=== PATIENT | female | born 1930 | race Caucasian/White ===

== ENCOUNTER 2020-05-18 16:33 | Emergency (ER) | payer MEDICARE, BC ==
--- NOTE | 2020-05-18 16:59 | EDM.PDOC ---
ED HPI GENERAL MEDICAL PROBLEM - General Stated Complaint: STROKE Time Seen by Provider: 05/18/20 16:50 Source of Information: Reports: EMS, EMS Notes Reviewed, Old Records, RN, RN Notes Reviewed History Limitations: Reports: Altered Mental Status - History of Present Illness INITIAL COMMENTS - FREE TEXT/NARRATIVE: Patient presents to the ED via EMS for stroke-like symptoms. Per EMS, the patient was found unresponsive in her home following a worried-well call from her neighbor. She was aroused by sternal rub and was noted to have a right- sided droop, right-sided facial weakness, and was verbally unresponsive to EMS. Upon arrival to this facility she remains aphasic with a noted right-sided droop and right-sided weakness. NIH is 19. She is stable of 1L of O2 via NC. Currently attempting to notify next of kin. ED ROS GENERAL - Review of Systems Review Of Systems: Unable To Obtain Reason Not Obtained: Aphasia ED EXAM, NEURO - Physical Exam Exam: See Below Exam Limited By: Altered Mental Status (Aphasia) General Appearance: Alert, No Apparent Distress Eye Exam: Bilateral Eye: EOMI, Normal Inspection, PERRL (4mm) Throat/Mouth: Normal Inspection, No Airway Compromise. No: Normal Voice (Patient aphasic ) Head Exam: Atraumatic, Normocephalic Neck: Normal Inspection, Supple, Non-Tender, Full Range of Motion Respiratory/Chest: No Respiratory Distress, Lungs Clear, Normal Breath Sounds, No Accessory Muscle Use Cardiovascular: Normal Peripheral Pulses, Regular Rate, Rhythm, No Edema, No Gallop, No JVD, No Murmur, No Rub GI/Abdominal: Normal Bowel Sounds, Soft, No Distention, No Mass, Pelvis Stable. No: Guarding (Female) Exam: Deferred Rectal (Female) Exam: Deferred Neurological: Alert, Abnormal Finger to Nose, Abnormal Motor, Straight Leg Raise (L), Other (Aphasia). No: Straight Leg Raise (R) Extremities: Limited Range of Motion (To RUE and RLE) Psychiatric: Normal Affect, Normal Mood Skin Exam: Warm, Dry, Intact, Normal Color, No Rash. No: Ecchymosis, Erythema, Jaundice, Mottled, Pallor, Petechiae Course - Vital Signs Last Recorded V/S: Last Vital Signs Temp 97.8 F 05/18/20 16:58 Pulse 71 05/18/20 16:58 Resp 15 05/18/20 16:58 BP 134/72 05/18/20 16:58 Pulse Ox 95 05/18/20 16:58 - Orders/Labs/Meds Orders: Active Orders 24 hr Category Date Time Status CULTURE URINE [RM] Stat Lab 05/18/20 17:43 Results Labs: Laboratory Tests 05/18/20 05/18/20 05/18/20 Range/Units 17:00 17:00 17:00 WBC 13.1 H (5.0-10.0) 10^3/uL RBC 4.22 (4.2-5.4) 10^6/uL Hgb 13.0 (12.0-16.0) g/dL Hct 39.8 (37.0-47.0) % MCV 94.3 (80-100) fL MCH 30.8 (27.0-34.0) pg MCHC 32.7 L (33.0-35.0) g/dL Plt Count 188 (150-450) 10^3/uL Neut % (Auto) 87.9 H (42.2-75.2) % Lymph % (Auto) 7.4 L (20.5-50.1) % [place] % (Auto) 4.1 (2-8) % Eos % (Auto) 0.4 L (1.0-3.0) % Baso % (Auto) 0.2 (0.0-1.0) % PT 11.1 (9.0-12.0) SEC INR 1.2 (0.9-1.2) APTT 22.4 (22.0-34.0) SEC Sodium 143 (136-145) mmol/L Potassium 3.3 L (3.5-5.1) mmol/L Chloride 102 (98-107) mmol/L Carbon Dioxide 31 (21-32) mmol/L Anion Gap 13.3 H (7-13) mEq/L BUN 22 H (7-18) mg/dL Creatinine 1.04 H (0.55-1.02) mg/dL Est Cr Clr Drug Dosing TNP Estimated GFR (MDRD) 50 BUN/Creatinine Ratio 21.2 (No establ ref range) Glucose 158 H (74-99) mg/dL Lactic Acid (0.4-2.0) mmol/L Calcium 9.7 (8.5-10.1) mg/dL Total Bilirubin 0.7 (0.2-1.0) mg/dL AST 37 (15-37) U/L ALT 54 (14-59) U/L Alkaline Phosphatase 51 (46-116) U/L Troponin I < 0.017 (0.000-0.056) ng/mL Total Protein 7.3 (6.4-8.2) g/dL Albumin 4.0 (3.4-5.0) g/dL Globulin 3.3 Albumin/Globulin Ratio 1.2 Urine Color (YELLOW) Urine Appearance (CLEAR) Urine pH (5.0-9.0) Ur Specific [place] (1.005-1.030) Urine Protein (NEGATIVE) Urine Glucose (UA) (NEGATIVE) Urine Ketones (NEGATIVE) Urine Occult Blood (NEGATIVE) Urine Nitrite (NEGATIVE) Urine Bilirubin (NEGATIVE) Urine Urobilinogen (0.2-1.0) mg/dL Ur Leukocyte Esterase (NEGATIVE) Urine RBC /HPF Urine WBC (0-5/HPF) /HPF Ur Epithelial Cells (NOT SEEN) /HPF Amorphous Sediment (NOT SEEN) /HPF Urine Bacteria (0-FEW/HPF) /HPF Urine Mucus (NOT SEEN) /LPF Urine Opiates Screen (NEGATIVE) Ur Oxycodone Screen (NEGATIVE) Urine Methadone Screen (NEGATIVE) Ur Barbiturates Screen (NEGATIVE) U Tricyclic Antidepress (NEGATIVE) Ur Phencyclidine Scrn (NEGATIVE) Ur Amphetamine Screen (NEGATIVE) U Methamphetamines Scrn (NEGATIVE) Urine MDMA Screen (NEGATIVE) U Benzodiazepines Scrn (NEGATIVE) Urine Cocaine Screen (NEGATIVE) U Marijuana (THC) Screen (NEGATIVE) Ethyl Alcohol < 3 (0) mg/dL 05/18/20 05/18/20 05/18/20 Range/Units 17:00 17:43 17:43 WBC (5.0-10.0) 10^3/uL RBC (4.2-5.4) 10^6/uL Hgb (12.0-16.0) g/dL Hct (37.0-47.0) % MCV (80-100) fL MCH (27.0-34.0) pg MCHC (33.0-35.0) g/dL Plt Count (150-450) 10^3/uL Neut % (Auto) (42.2-75.2) % Lymph % (Auto) (20.5-50.1) % [place] % (Auto) (2-8) % Eos % (Auto) (1.0-3.0) % Baso % (Auto) (0.0-1.0) % PT (9.0-12.0) SEC INR (0.9-1.2) APTT (22.0-34.0) SEC Sodium (136-145) mmol/L Potassium (3.5-5.1) mmol/L Chloride (98-107) mmol/L Carbon Dioxide (21-32) mmol/L Anion Gap (7-13) mEq/L BUN (7-18) mg/dL Creatinine (0.55-1.02) mg/dL Est Cr Clr Drug Dosing Estimated GFR (MDRD) BUN/Creatinine Ratio (No establ ref range) Glucose (74-99) mg/dL Lactic Acid 1.5 (0.4-2.0) mmol/L Calcium (8.5-10.1) mg/dL Total Bilirubin (0.2-1.0) mg/dL AST (15-37) U/L ALT (14-59) U/L Alkaline Phosphatase (46-116) U/L Troponin I (0.000-0.056) ng/mL Total Protein (6.4-8.2) g/dL Albumin (3.4-5.0) g/dL Globulin Albumin/Globulin Ratio Urine Color Yellow (YELLOW) Urine Appearance Turbid (CLEAR) Urine pH 7.0 (5.0-9.0) Ur Specific [place] 1.025 (1.005-1.030) Urine Protein Trace H (NEGATIVE) Urine Glucose (UA) Negative (NEGATIVE) Urine Ketones Trace H (NEGATIVE) Urine Occult Blood Trace-lysed H (NEGATIVE) Urine Nitrite Positive H (NEGATIVE) Urine Bilirubin Negative (NEGATIVE) Urine Urobilinogen 0.2 (0.2-1.0) mg/dL Ur Leukocyte Esterase Trace H (NEGATIVE) Urine RBC 5-10 H /HPF Urine WBC 10-20 H (0-5/HPF) /HPF Ur Epithelial Cells Rare (NOT SEEN) /HPF Amorphous Sediment Few (NOT SEEN) /HPF Urine Bacteria Many H (0-FEW/HPF) /HPF Urine Mucus Not seen (NOT SEEN) /LPF Urine Opiates Screen Negative (NEGATIVE) Ur Oxycodone Screen Negative (NEGATIVE) Urine Methadone Screen Negative (NEGATIVE) Ur Barbiturates Screen Negative (NEGATIVE) U Tricyclic Antidepress Negative (NEGATIVE) Ur Phencyclidine Scrn Negative (NEGATIVE) Ur Amphetamine Screen Negative (NEGATIVE) U Methamphetamines Scrn Negative (NEGATIVE) Urine MDMA Screen Negative (NEGATIVE) U Benzodiazepines Scrn Negative (NEGATIVE) Urine Cocaine Screen Negative (NEGATIVE) U Marijuana (THC) Screen Negative (NEGATIVE) Ethyl Alcohol (0) mg/dL Meds: Medications Discontinued Medications Generic Name Dose Route Start Last Admin Trade Name Freq PRN Reason Stop Dose Admin Sodium Chloride 1,000 mls @ 30 mls/hr 05/18/20 17:57 Normal Saline IV 05/20/20 03:16 ASDIRECTED ONE - Re-Assessments/Exams Free Text/Narrative Re-Assessment/Exam: 05/18/20 CT unremarkable for acute processes; does reveal calcifications in the basal ganglia. NIH 19. Case discussed with Dr. Angel, neurologist at [facility] who states she is not a candidate for TPA therapy and recommends discussing her case with providers at [facility] or [facility] as en dovascular therapies may be viable. Case discussed with Dr. Donovan, neurologist at [facility] who kindly agreed to accept patient for transfer to the ED. Discussed transfer with patient's daughter, Becky, who verbalized understanding and agreement with the plan of care. She stated the patient is a DNR/DNI. Will start IVF TKO. Departure - Departure Time of Disposition: 18:57 Disposition: DC/Tfer to Acute Hospital 02 Condition: Good Clinical Impression: Cerebrovascular accident (CVA) Qualifiers: CVA mechanism: other Qualified Code(s): I63.89 - Other cerebral infarction - Discharge Information Referrals: PCP,None [Primary Care Provider] - Forms: Interfacility Transfer [facility] Sepsis Event Note (ED) - Evaluation Sepsis Screening Result: No Definite Risk - My Orders Last 24 Hours: My Active Orders 05/18/20 17:43 CULTURE URINE [RM] Stat - Assessment/Plan Last 24 Hours: My Active Orders 05/18/20 17:43 CULTURE URINE [RM] Stat
--- NOTE | 2020-05-18 17:02 | CT ---
EXAMINATION: Head wo Cont SEX: Female AGE: 89 years CLINICAL HISTORY: 89-year-old "unresponsive" female with right facial weakness (droop). Stroke Code. Scan technique: Volume acquisition of data emergency unenhanced CT scan of the head and brain obtained with the patient lying supine on the Siemens multi slice scanner [place], [place]. All data archived in the PACS system for storage, reformatting axial/sagittal/coronal planes, study. Interpretation: 1. *Asymmetric punctate density genu of the right internal capsule that could represent tiny focus of bleed, however, suggest (without comparison films) that this more likely represents basal ganglia calcification (axial slice #14; coronal slice #19). No associated edema or mass effect on the ipsilateral ventricle. 2. Scattered areas of decreased attenuation throughout the periventricular white matter of both cerebral hemispheres characteristic of microvascular ischemic disease or infarct. 3. Mild atrophy symmetric and consistent with age/gender. No supratentorial or posterior fossa mass lesion. 4. *Extracranial scalp hematomas on the right (frontal and parietal-occipital) without underlying skull fracture. 5. No underlying or contrecoup brain contusion. No extracerebral/intracranial epi or subdural hematoma. 6. No hydrocephalus. 7. No other evidence of acute intracerebral, intraventricular or subarachnoid bleed. 8. Symmetric clear pneumatization of the paranasal and mastoid sinuses. CONCLUSION: Multi-infarct ischemic disease. Abnormal basal ganglia calcifications (see above). No intracranial mass, hydrocephalus or other evidence of intracranial bleed. Scalp hematoma(s) on right.
[2020-05-18 17:25] LABS: PTT,PARTIAL THROMBOPLSTIN TIME 22.4 SEC (22.0-34.0)
[2020-05-18 17:26] LABS: ANION GAP 13.3 mEq/L (7-13); CHLORIDE,CL 102 mmol/L (98-107); SODIUM,NA 143 mmol/L (136-145)
[2020-05-18] MEDS ORDERED: Sodium Chloride 0.9% 1,000 ML IV ONE (17:57)
== END 2020-05-18 18:45 ==
LOC: DL.ED 16:33
DX: I63.9 Cerebral infarction, unspecified (principal); R47.01 Aphasia; R29.810 Facial weakness
CPT/HCPCS: 36415; 70450; 80053; 80305-QW; 80307; 81001; 83605; 84484; 85025; 85610; 85730; 87086; 87088; 87186; 93005; 99285-25

== ENCOUNTER 2020-09-08 16:03 | Inpatient (IN) | payer MEDICARE, BC ==
--- NOTE | 2020-09-08 15:45 | EDM.PDOC ---
<Tracey Curiel - Last Filed: 09/08/20 16:27> ED HPI GENERAL MEDICAL PROBLEM - General Chief Complaint: Neurological Problem Stated Complaint: AMBULANCE Time Seen by Provider: 09/08/20 15:45 Source of Information: Reports: EMS, EMS Notes Reviewed, RN, RN Notes Reviewed History Limitations: Reports: No Limitations - Related Data Allergies Allergy/AdvReac Type Severity Reaction Status Date / Time No Known Allergies Allergy Verified 09/08/20 16:37 Social & Family History - Family History Family Medical History: Unobtainable Departure - Departure Disposition: Admitted As Inpatient 67 Clinical Impression: New onset seizure CVA (cerebral vascular accident) Qualifiers: CVA mechanism: other Qualified Code(s): I63.89 - Other cerebral infarction - Discharge Information Forms: ED Department Discharge <Keyur Gonzalez - Last Filed: 09/08/20 17:24> ED HPI GENERAL MEDICAL PROBLEM - General Source of Information: Reports: Patient, Family ([id number], and Daughter (Becky Porter)), Old Records, RN, RN Notes Reviewed History Limitations: Reports: Physical Impairment (Partial aphasia) - History of Present Illness INITIAL COMMENTS - FREE TEXT/NARRATIVE: Pt arrives from assisted living by ambulance with report of a witnessed seizure of 2 to 3 minutes duration. Pt's [id number] had the pt seated in a chair to fix up her hair when the pt suddenly made a high pitched moan, became unresponsive, had eyelid fluttering, generalized shaking and rigidity, and bit her tongue. Pt then had approximately one hour of postictal confusion with drowsiness. Pt was noted to have a worsening of her right sided weakness, worsening of her chronic aphasia, and a new right sided facial droop. 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 She was recently restarted on Eliquis due to chronic A-fib. Pt denies pain at this time. Pt's daughter Becky Porter ORTHODONTIC TECHNICIAN arrives to the ER and states that the pt may be admitted here for further evaluation and initiation of anticonvulsant tx, but she does not wish to have the pt transferred to a higher level of care for neurology, neurosurgical, or invasive procedural care. The pt may receive conservative medical care, but is to be DNR/DNI per daughter's order. Onset: Today Duration: Constant Location: Reports: Generalized Severity: Severe Improves with: Reports: None Worsens with: Reports: None Associated Symptoms: Reports: No Other Symptoms Past Medical History Cardiovascular History: Reports: Afib Neurological History: Reports: CVA Social & Family History - Family History Family Medical History: Unobtainable - Living Situation & Occupation Living situation: Reports: Assisted Living Occupation: Retired ED ROS GENERAL - Review of Systems Review Of Systems: Unable To Obtain Reason Not Obtained: Pt unable to answer ROS questions due to aphasia. ED EXAM, NEURO - Physical Exam Exam: See Below Exam Limited By: Physical Impairment General Appearance: Alert, No Apparent Distress Eye Exam: Bilateral Eye: EOMI, PERRL Ears: Normal External Exam, Hearing Grossly Normal Nose: Normal Inspection, No Blood Throat/Mouth: Normal Lips, Normal Teeth, Normal Gums, Other (Evidence of tongue biting injury) Head Exam: Atraumatic, Normocephalic Neck: Normal Inspection, Non-Tender Respiratory/Chest: No Respiratory Distress, Lungs Clear, No Accessory Muscle Use, Chest Non-Tender, Decreased Breath Sounds Cardiovascular: Irregularly Irregular GI/Abdominal: Normal Bowel Sounds, Soft, Non-Tender Neurological: Alert, Abnormal Motor (Right sided weakness, Rt facial droop, aphasia) Extremities: Non-Tender Skin Exam: Warm, Dry, Intact, Normal Color #1 Interpretation EKG Date: 09/08/20 Time: 16:11 Rhythm: A-Fib Rate (Beats/Min): 94 [place]: LAD-Left Buxton Deviation P-Wave: Absent QRS: Other (LAFB, old anterior Q waves) ST-T: Normal QT: Normal Comparison: No Change Course - Vital Signs Last Recorded V/S: Last Vital Signs Temp 97.6 F 09/08/20 16:28 Pulse 87 09/08/20 16:28 Resp 18 09/08/20 16:28 BP 118/71 09/08/20 16:28 Pulse Ox 100 09/08/20 16:28 - Orders/Labs/Meds Orders: Active Orders 24 hr Category Date Time Status Blood Glucose Check, Bedside [RC] ONETIME Care 09/08/20 15:46 Active EKG Documentation Completion [RC] STAT Care 09/08/20 15:45 Active DRUG SCREEN URINE BIORAD [URCHEM] Urgent Lab 09/08/20 15:46 Ordered UA RFX SANTOSH AND CULT IF INDIC [URIN] Stat Lab 09/08/20 15:46 Ordered Labs: Laboratory Tests 09/08/20 09/08/20 09/08/20 Range/Units 16:27 16:27 16:27 WBC 9.3 (5.0-10.0) 10^3/uL RBC 4.40 (4.2-5.4) 10^6/uL Hgb 12.1 (12.0-16.0) g/dL Hct 38.8 (37.0-47.0) % MCV 88.2 D (80-100) fL MCH 27.5 (27.0-34.0) pg MCHC 31.2 L (33.0-35.0) g/dL Plt Count 277 D (150-450) 10^3/uL Neut % (Auto) 82.1 H (42.2-75.2) % Lymph % (Auto) 9.0 L (20.5-50.1) % [place] % (Auto) 7.1 (2-8) % Eos % (Auto) 1.4 (1.0-3.0) % Baso % (Auto) 0.4 (0.0-1.0) % PT 12.3 H (9.0-12.0) SEC INR 1.2 (0.9-1.2) APTT 26.5 (22.0-34.0) SEC Sodium 143 (136-145) mmol/L Potassium 3.7 (3.5-5.1) mmol/L Chloride 104 (98-107) mmol/L Carbon Dioxide 30 (21-32) mmol/L Anion Gap 12.7 (7-13) mEq/L BUN 17 (7-18) mg/dL Creatinine 0.79 (0.55-1.02) mg/dL Est Cr Clr Drug Dosing 41.69 mL/min Estimated GFR (MDRD) > 60 BUN/Creatinine Ratio 21.5 (No establ ref range) Glucose 101 H (70-99) mg/dL Lactic Acid (0.4-2.0) mmol/L Calcium 8.9 (8.5-10.1) mg/dL Magnesium 1.7 L (1.8-2.4) mg/dL Total Bilirubin 0.4 (0.2-1.0) mg/dL AST 15 (15-37) U/L ALT 29 (14-59) U/L Alkaline Phosphatase 59 (46-116) U/L Lactate Dehydrogenase (81-234) U/L Creatine Kinase (16-191) U/L Troponin I < 0.017 (0.000-0.056) ng/mL C-Reactive Protein 1.0 H (0.0-0.9) mg/dL B-Natriuretic Peptide 189 H (0-100) pg/ml Total Protein 6.6 (6.4-8.2) g/dL Albumin 2.9 L (3.4-5.0) g/dL Globulin 3.7 Albumin/Globulin Ratio 0.78 Ethyl Alcohol < 3 (0) mg/dL 09/08/20 09/08/20 Range/Units 16:27 16:27 WBC (5.0-10.0) 10^3/uL RBC (4.2-5.4) 10^6/uL Hgb (12.0-16.0) g/dL Hct (37.0-47.0) % MCV (80-100) fL MCH (27.0-34.0) pg MCHC (33.0-35.0) g/dL Plt Count (150-450) 10^3/uL Neut % (Auto) (42.2-75.2) % Lymph % (Auto) (20.5-50.1) % [place] % (Auto) (2-8) % Eos % (Auto) (1.0-3.0) % Baso % (Auto) (0.0-1.0) % PT (9.0-12.0) SEC INR (0.9-1.2) APTT (22.0-34.0) SEC Sodium (136-145) mmol/L Potassium (3.5-5.1) mmol/L Chloride (98-107) mmol/L Carbon Dioxide (21-32) mmol/L Anion Gap (7-13) mEq/L BUN (7-18) mg/dL Creatinine (0.55-1.02) mg/dL Est Cr Clr Drug Dosing mL/min Estimated GFR (MDRD) BUN/Creatinine Ratio (No establ ref range) Glucose (70-99) mg/dL Lactic Acid 1.0 (0.4-2.0) mmol/L Calcium (8.5-10.1) mg/dL Magnesium (1.8-2.4) mg/dL Total Bilirubin (0.2-1.0) mg/dL AST (15-37) U/L ALT (14-59) U/L Alkaline Phosphatase (46-116) U/L Lactate Dehydrogenase 159 (81-234) U/L Creatine Kinase 43 (16-191) U/L Troponin I (0.000-0.056) ng/mL C-Reactive Protein (0.0-0.9) mg/dL B-Natriuretic Peptide (0-100) pg/ml Total Protein (6.4-8.2) g/dL Albumin (3.4-5.0) g/dL Globulin Albumin/Globulin Ratio Ethyl Alcohol (0) mg/dL Meds: Medications Discontinued Medications Generic Name Dose Route Start Last Admin Trade Name Freq PRN Reason Stop Dose Admin Levetiracetam 1,500 mg/ Premix 300 mls @ 1,200 mls/hr 09/08/20 17:03 IV 09/08/20 17:04 ONETIME ONE - Radiology Interpretation Free Text/Narrative:: CT Head: old left CVA with no acute changes per rad. report. Departure - Departure Time of Disposition: 17:23 (admitted to Dr. Beckwith) Condition: Poor - Discharge Information *PRESCRIPTION DRUG MONITORING PROGRAM REVIEWED*: Not Applicable *COPY OF PRESCRIPTION DRUG MONITORING REPORT IN PATIENT AAKASH: Not Applicable Sepsis Event Note (ED) - Focused Exam Vital Signs: Vital Signs Temp Pulse Resp BP Pulse Ox 09/08/20 16:28 97.6 F 87 18 118/71 100
--- NOTE | 2020-09-08 16:26 | CT ---
PROCEDURE INFORMATION: Exam: CT Head Without Contrast Exam date and time: 09/08/2020 4:11 PM Age: 89 years old Clinical indication: Other: Seizure; Additional info: Seizure; No HX of seizure, but HX of CVA TECHNIQUE: Imaging protocol: Computed tomography of the head without contrast. Radiation optimization: All CT scans at this facility use at least one of these dose optimization techniques: automated exposure control; mA and/or kV adjustment per patient size (includes targeted exams where dose is matched to clinical indication); or iterative reconstruction. COMPARISON: CT Head wo Cont 05/18/2020 4:44 PM FINDINGS: Brain: There is no intracranial mass effect or midline shift. Chronic regions of cerebral infarction in left middle cerebral artery territory and left parieto-occipital cortex. There is no sign of acute intracranial hemorrhage or cerebral edema. Cerebral ventricles: The ventricles and cortical sulci are normal in caliber. Bones/joints: Skull base and overlying calvarium are intact. No lytic or osteosclerotic lesions. Paranasal sinuses: Visualized sinuses are unremarkable. No fluid levels. Mastoid air cells: Visualized mastoid air cells are well aerated. Soft tissues: Unremarkable. IMPRESSION: 1. No acute intracranial abnormality. 2. Chronic regions of cerebral infarction in left middle cerebral artery territory and left parieto-occipital cortex. These were not present on the comparison study.
[2020-09-08 16:53] LABS: PTT,PARTIAL THROMBOPLSTIN TIME 26.5 SEC (22.0-34.0)
[2020-09-08 16:59] LABS: ANION GAP 12.7 mEq/L (7-13); CHLORIDE,CL 104 mmol/L (98-107); SODIUM,NA 143 mmol/L (136-145)
[2020-09-08] MEDS ORDERED: levETIRAcetam in NaCl (iso-os) 1,500 MG in Premix Bag 1 BAG IV ONE ×2 (17:03)
[2020-09-08] MEDS ORDERED: Acetaminophen 325 MG Tab PO PRN (17:24)
[2020-09-08] MEDS ORDERED: Ondansetron 4 MG/2 ML SDV IVPUSH PRN (17:24)
[2020-09-08] MEDS ORDERED: Sodium Chloride 0.9% 10 ML Syringe FLUSH PRN (17:24)
[2020-09-08] MEDS ORDERED: Acetaminophen 650 MG Supp RECTAL PRN (17:24)
[2020-09-08] MEDS ORDERED: Magnesium Sulfate/Water 2 GM/50 ML BAG IV ONE (17:30)
--- NOTE | 2020-09-08 17:50 | PCM.HP ---
H&P History of Present Illness - General Date of Service: 09/08/20 Admit Problem/Dx: Admission Diagnosis/Problem Admission Diagnosis/Problem CVA, Cerebrovascular accident, new onset seizure. Source of Information: Patient, Family, Provider - History of Present Illness Initial Comments - Free Text/Narative: Chief complaint: Altered mental status, reported seizure activity. History of present illness: Patient is an 89-year-old female who was previously quite healthy prior to May 2020, who presents to the [facility] emergency department via EMS due to seizure activity in the field. According to report from EMS and the emergency room provider (who received information from one of the patient's relatives), the patient was sitting in a chair by herself when all of a sudden a loud groan and a shriek came from the patient. The patient's relative ran to her assistance and found her eyes f luttering and she was displaying symptoms of a generalized tonic-clonic seizure with bilateral upper extremity and lower extremity clonic movements. An unknown amount of time according to report. When the clonus had resolved spontaneously, her head slumped down and it was noticed that blood was being expelled from the oral cavity. It was evident that she had bitten her tongue. She did not regain consciousness until several minutes later. She had remained confused with slow speech. There was a noticeable right-sided facial droop. There was also noticeable right-sided weakness in comparison to the left. The patient had a an ischemic event in May of this year. There is question of small hemorrhagic conversion. She was seen in [place] for this particular event. It was presumed that the ischemic event was from atrial fibrillation however there is never been any objective evidence to suggest so. In the weeks after the event, the patient was placed on full dose Eliquis. She has remained on 5 mg twice daily as well as statin therapy. Patient has been cognitively and physically declining since then, even no other was not a significant residual deficit. This is according to her [id number] who is present and a local nurse practitioner. Upon arrival in the emergency department she was in a postictal state and unable to provide any history. She was able to follow some commands. Expressive aphasia was noted. Right-sided facial droop was noted. There was evident dried blood in the oral cavity. EKG showed sinus rhythm. CT of the head showed area of large old infarct in the left MCA territory. No new areas of infarct or hemorrhage were noted. Patient's family was notified of her condition. Medical options were provided to the family regarding further care. Patient's family wishes for her to be DNR/DNI without any aggressive measures. She is not to be transferred. Neurologic consultation not requested. In the event that she has a hemorrhagic conversion they do not wish for neurosurgery intervention. Family has been notified that factor X reversal agents (Andexxa) are not available at our facility. Request for admission for monitoring, MRI in the morning, PT OT, case management consultation was requested to the internal medicine service. We are happy to oblige. CODE STATUS: DNR/DNI. A 14 point review of systems was reviewed entirely with the patient's family and only pertinent for the above information. - Related Data Allergies/Adverse Reactions: Allergies Allergy/AdvReac Type Severity Reaction Status Date / Time No Known Allergies Allergy Verified 09/08/20 16:37 Home Medications: Home Meds Apixaban [Eliquis] 5 mg PO BID 09/08/20 [History] Metoprolol Tartrate 500 mg PO DAILY 09/08/20 [History] Potassium Chloride 20 meq PO DAILY 09/08/20 [History] amLODIPine [Norvasc] 5 mg PO DAILY 09/08/20 [History] atorvaSTATin [Lipitor] 10 mg PO DAILY 09/08/20 [History] hydroCHLOROthiazide [Hydrochlorothiazide] 25 mg PO DAILY 09/08/20 [History] Past Medical History Cardiovascular History: Reports: Afib, High Cholesterol, Hypertension Neurological History: Reports: CVA Social & Family History - Family History Family Medical History: Unobtainable - Tobacco Use Tobacco Use Status *Q: Never Tobacco User - Recreational Drug Use Recreational Drug Use: No - Living Situation & Occupation Living situation: Reports: Assisted Living Occupation: Retired H&P Review of Systems - Review of Systems: Review Of Systems: Comprehensive ROS is negative, except as noted in HPI. Exam - Exam Exam: See Below - Vital Signs Vital Signs: Last Vital Signs Temp 97.6 F 09/08/20 16:28 Pulse 87 09/08/20 16:28 Resp 18 09/08/20 16:28 BP 118/71 09/08/20 16:28 Pulse Ox 100 09/08/20 16:28 Weight: 180 lb - Exam General: Alert, Oriented (Oriented to only self), Other (Postictal state) HEENT: Conjunctiva Clear, Pupils Equal, Pupils Reactive, Other (Dried blood in the oral cavity. Small lesion on the tongue) Neck: Supple, Trachea Midline. No: Carotid Bruit Lungs: Clear to Auscultation, Normal Respiratory Effort Cardiovascular: Regular Rate, Regular Rhythm GI/Abdominal Exam: Normal Bowel Sounds, Soft, Non-Tender, No Distention Extremities: Normal Inspection, No Pedal Edema Skin: Warm Neurological: Babinski (Upgoing on the right), Other (4 out of 5 strength globally on the right in comparison to the left. Right-sided facial droop. Tongue deviation to the left. Rapid alternating movements are slow but are symmetric. Patient is able to oppose thumb to fingers.) Neuro Extensive - Mental Status: Disorientation to Time, Slow Response to Commands Neuro Extensive - Motor, Sensory, Reflexes: Dysarthria, Expressive Aphasia Psychiatric: Alert (Alert when prompted) - Patient Data Lab Results Last 24 hrs: Laboratory Results - last 24 hr 09/08/20 09/08/20 09/08/20 Range/Units 16:27 16:27 16:27 WBC 9.3 (5.0-10.0) 10^3/uL RBC 4.40 (4.2-5.4) 10^6/uL Hgb 12.1 (12.0-16.0) g/dL Hct 38.8 (37.0-47.0) % MCV 88.2 D (80-100) fL MCH 27.5 (27.0-34.0) pg MCHC 31.2 L (33.0-35.0) g/dL Plt Count 277 D (150-450) 10^3/uL Neut % (Auto) 82.1 H (42.2-75.2) % Lymph % (Auto) 9.0 L (20.5-50.1) % [place] % (Auto) 7.1 (2-8) % Eos % (Auto) 1.4 (1.0-3.0) % Baso % (Auto) 0.4 (0.0-1.0) % PT 12.3 H (9.0-12.0) SEC INR 1.2 (0.9-1.2) APTT 26.5 (22.0-34.0) SEC Sodium 143 (136-145) mmol/L Potassium 3.7 (3.5-5.1) mmol/L Chloride 104 (98-107) mmol/L Carbon Dioxide 30 (21-32) mmol/L Anion Gap 12.7 (7-13) mEq/L BUN 17 (7-18) mg/dL Creatinine 0.79 (0.55-1.02) mg/dL Est Cr Clr Drug Dosing 41.69 mL/min Estimated GFR (MDRD) > 60 BUN/Creatinine Ratio 21.5 (No establ ref range) Glucose 101 H (70-99) mg/dL Lactic Acid (0.4-2.0) mmol/L Calcium 8.9 (8.5-10.1) mg/dL Magnesium 1.7 L (1.8-2.4) mg/dL Total Bilirubin 0.4 (0.2-1.0) mg/dL AST 15 (15-37) U/L ALT 29 (14-59) U/L Alkaline Phosphatase 59 (46-116) U/L Lactate Dehydrogenase (81-234) U/L Creatine Kinase (16-191) U/L Troponin I < 0.017 (0.000-0.056) ng/mL C-Reactive Protein 1.0 H (0.0-0.9) mg/dL B-Natriuretic Peptide 189 H (0-100) pg/ml Total Protein 6.6 (6.4-8.2) g/dL Albumin 2.9 L (3.4-5.0) g/dL Globulin 3.7 Albumin/Globulin Ratio 0.78 Ethyl Alcohol < 3 (0) mg/dL 09/08/20 09/08/20 Range/Units 16:27 16:27 WBC (5.0-10.0) 10^3/uL RBC (4.2-5.4) 10^6/uL Hgb (12.0-16.0) g/dL Hct (37.0-47.0) % MCV (80-100) fL MCH (27.0-34.0) pg MCHC (33.0-35.0) g/dL Plt Count (150-450) 10^3/uL Neut % (Auto) (42.2-75.2) % Lymph % (Auto) (20.5-50.1) % [place] % (Auto) (2-8) % Eos % (Auto) (1.0-3.0) % Baso % (Auto) (0.0-1.0) % PT (9.0-12.0) SEC INR (0.9-1.2) APTT (22.0-34.0) SEC Sodium (136-145) mmol/L Potassium (3.5-5.1) mmol/L Chloride (98-107) mmol/L Carbon Dioxide (21-32) mmol/L Anion Gap (7-13) mEq/L BUN (7-18) mg/dL Creatinine (0.55-1.02) mg/dL Est Cr Clr Drug Dosing mL/min Estimated GFR (MDRD) BUN/Creatinine Ratio (No establ ref range) Glucose (70-99) mg/dL Lactic Acid 1.0 (0.4-2.0) mmol/L Calcium (8.5-10.1) mg/dL Magnesium (1.8-2.4) mg/dL Total Bilirubin (0.2-1.0) mg/dL AST (15-37) U/L ALT (14-59) U/L Alkaline Phosphatase (46-116) U/L Lactate Dehydrogenase 159 (81-234) U/L Creatine Kinase 43 (16-191) U/L Troponin I (0.000-0.056) ng/mL C-Reactive Protein (0.0-0.9) mg/dL B-Natriuretic Peptide (0-100) pg/ml Total Protein (6.4-8.2) g/dL Albumin (3.4-5.0) g/dL Globulin Albumin/Globulin Ratio Ethyl Alcohol (0) mg/dL Result Diagrams: 09/08/20 16:27 09/08/20 16:27 *Q Meaningful Use (ADM) - VTE Risk Assess *Q Each Risk Factor Represents 3 Points: Age 75 Years or Greater Total Score 3 Point Risk Factors: 3 Problem List Initiated/Reviewed/Updated: Yes Orders Last 24hrs: Active Orders 24 hr Category Date Time Status Admission Diagnosis [ADT] Routine ADT 09/08/20 17:15 Ordered Admission Status [Patient Status] [ADT] Routine ADT 09/08/20 17:15 Active Antiembolic Devices [RC] PER UNIT ROUTINE Care 09/08/20 17:27 Active Blood Glucose Check, Bedside [RC] ONETIME Care 09/08/20 15:46 Active Cardiac Monitoring [RC] CONTINUOUS Care 09/08/20 17:25 Active EKG Documentation Completion [RC] STAT Care 09/08/20 15:45 Active Oxygen Therapy [RC] PRN Care 09/08/20 17:24 Active Up With Assistance [RC] ASDIRECTED Care 09/08/20 17:24 Active VTE/DVT Education [RC] PER UNIT ROUTINE Care 09/08/20 17:24 Active Vital Signs [RC] Q4H Care 09/08/20 17:24 Active OT Evaluation and Treatment [CONS] Routine Cons 09/08/20 17:24 Active PT Evaluation and Treatment [CONS] Routine Cons 09/08/20 17:24 Active Nothing per Oral Now Diet [DIET] Diet 09/08/20 Dinner Active Brain wo Cont [MR] Routine Exams 09/09/20 08:00 Ordered Joshi [CORONAVIRUS COVID-19 JEAN MARIE] [MOLEC] Routine Lab 09/08/20 17:22 Received DRUG SCREEN URINE BIORAD [URCHEM] Urgent Lab 09/08/20 15:46 Ordered UA RFX SANTOSH AND CULT IF INDIC [URIN] Stat Lab 09/08/20 15:46 Ordered Acetaminophen [TylenoL] Med 09/08/20 17:24 Active 650 mg PO Q4H PRN Acetaminophen [Tylenol] Med 09/08/20 17:24 Active 650 mg RECTAL Q4H PRN Dextrose 5%-0.45% NaCl [Dextrose 5%-1/2 NS] 1,000 ml Med 09/08/20 17:30 Active IV ASDIRECTED Magnesium Sulfate/Water [Magnesium Sulfate in Water 2 Med 09/08/20 17:30 Active GM/50 ML] 2 gm in 50 ml IV ONETIME Ondansetron [Zofran] Med 09/08/20 17:24 Active 4 mg IVPUSH Q4H PRN Sodium Chloride 0.9% [Saline Flush] Med 09/08/20 17:24 Active 10 ml FLUSH ASDIRECTED PRN levETIRAcetam in NaCl (iso-os) [Levetiracetam in NaCl ( Med 09/08/20 21:00 Active Iso-Os)] 1,000 mg Premix Bag 1 bag IV Q12HR Saline Lock Insert [OM.PC] Routine Oth 09/08/20 17:24 Ordered Sequential Compression Device [OM.PC] Per Unit Routine Oth 09/08/20 17:25 Ordered Resuscitation Status Routine Resus Stat 09/08/20 17:24 Ordered Medication Orders Acetaminophen (Acetaminophen 650 Mg Supp) 650 mg RECTAL Q4H PRN PRN Reason: Pain (mild 1-3) Acetaminophen (Acetaminophen 325 Mg Tab) 650 mg PO Q4H PRN PRN Reason: Pain (Mild 1-3)/fever Dextrose/Sodium Chloride (Dextrose 5%-1/2 Ns) 1,000 mls @ 60 mls/hr IV ASDIRECTED ÁLVARO Magnesium Sulfate (Magnesium Sulfate In Water 2 Gm/50 Ml) 2 gm in 50 mls @ 25 mls/hr IV ONETIME ONE Stop: 09/08/20 19:29 Levetiracetam 1,000 mg/ Premix 200 mls @ 800 mls/hr IV Q12HR ÁLVARO Ondansetron HCl (Ondansetron 4 Mg/2 Ml Sdv) 4 mg IVPUSH Q4H PRN PRN Reason: Nausea/Vomiting Sodium Chloride (Sodium Chloride 0.9% 10 Ml Syringe) 10 ml FLUSH ASDIRECTED PRN PRN Reason: Keep Vein Open Assessment/Plan Comment:: 89-year-old female with known history of prior stroke, presumed atrial fibrillation that is paroxysmal, and hypertension presents to the [facility] emergency department with seizure-like activity and new neurologic deficits. 1. Acute cerebrovascular accident. Suspected new ischemic event. Admit to the hospitalist service under inpatient status as I believe she is going require more than 2 midnight stay. Swallow evaluation in the morning. If she passes will resume oral medications including statin. Repeat imaging of the head tomorrow. We will proceed with MRI without contrast according to stroke protocol in the morning. Reassess for further progression of ischemic event and for possible hemorrhagic conversion as she is on a factor X inhibitor. PT and OT assessment. Case management and social work consult. In the event the patient has a decline in status or intracranial pathology worsens, the patient is a DNR/DNI and according to family we will pursue more of a palliative approach rather than neurologic and/or neurosurgical consultation, transfer, aggressive measures. Family is also aware that factor X in a better reversal agents are not available at our facility in the event that she has a hemorrhagic conversion. We will allow for permissive hypertension over the next 24 hours. 2. New onset seizure. Secondary to #1 and due to the severity of her previous insult. Patient has been loaded with Keppra 1500 mg by the emergency department. Also status post Ativan. Continue with Keppra IV 1000 g twice daily which will be converted to oral therapy at the time of discharge. Seizure precautions. Further plans as noted above. 3. History of hypertension. Home and occasions on hold. Will allow for permissive hypertension. 4. History hyperlipidemia. Hold statin therapy until the patient passes swallow evaluation. CODE STATUS: DNR/DNI. DVT prophylaxis mechanically as Eliquis is on hold.
[2020-09-08] MEDS: Dextrose 5%-0.45% NaCl 1,000 ML IV SCH (19:32)
[2020-09-08] MEDS: levETIRAcetam in NaCl (iso-os) 1,000 MG in Premix Bag 1 BAG IV SCH ×2 (21:51)
--- NOTE | 2020-09-09 07:09 | PCM.PN ---
- General Info Date of Service: 09/09/20 Admission Dx/Problem (Free Text): Admission Diagnosis/Problem Admission Diagnosis/Problem CVA, Cerebrovascular accident, new onset seizure. Subjective Update: Hospital day 2. Patient seen and examined at bedside. No acute events overnight. No new specific nurse concerns. No drastic changes in neurologic examination overnight. Blood pressure is low and within normal limits. MRI cervical scheduled for this morning. PT and OT with swallow eval to evaluate. - Patient Data Vitals - Most Recent: Last Vital Signs Temp 97.5 F 09/09/20 04:00 Pulse 72 09/09/20 04:00 Resp 20 09/09/20 04:00 BP 113/65 09/09/20 04:00 Pulse Ox 97 09/09/20 04:00 Weight - Most Recent: 141 lb 9.6 oz I&O - Last 24 Hours: Intake & Output 09/08/20 09/09/20 09/09/20 22:59 06:59 14:59 Intake Total 50 592 Balance 50 592 Lab Results Last 24 Hours: Laboratory Results - last 24 hr 09/08/20 09/08/20 09/08/20 Range/Units 16:27 16:27 16:27 WBC 9.3 (5.0-10.0) 10^3/uL RBC 4.40 (4.2-5.4) 10^6/uL Hgb 12.1 (12.0-16.0) g/dL Hct 38.8 (37.0-47.0) % MCV 88.2 D (80-100) fL MCH 27.5 (27.0-34.0) pg MCHC 31.2 L (33.0-35.0) g/dL Plt Count 277 D (150-450) 10^3/uL Neut % (Auto) 82.1 H (42.2-75.2) % Lymph % (Auto) 9.0 L (20.5-50.1) % [place] % (Auto) 7.1 (2-8) % Eos % (Auto) 1.4 (1.0-3.0) % Baso % (Auto) 0.4 (0.0-1.0) % PT 12.3 H (9.0-12.0) SEC INR 1.2 (0.9-1.2) APTT 26.5 (22.0-34.0) SEC Sodium 143 (136-145) mmol/L Potassium 3.7 (3.5-5.1) mmol/L Chloride 104 (98-107) mmol/L Carbon Dioxide 30 (21-32) mmol/L Anion Gap 12.7 (7-13) mEq/L BUN 17 (7-18) mg/dL Creatinine 0.79 (0.55-1.02) mg/dL Est Cr Clr Drug Dosing 41.69 mL/min Estimated GFR (MDRD) > 60 BUN/Creatinine Ratio 21.5 (No establ ref range) Glucose 101 H (70-99) mg/dL Lactic Acid (0.4-2.0) mmol/L Calcium 8.9 (8.5-10.1) mg/dL Magnesium 1.7 L (1.8-2.4) mg/dL Total Bilirubin 0.4 (0.2-1.0) mg/dL AST 15 (15-37) U/L ALT 29 (14-59) U/L Alkaline Phosphatase 59 (46-116) U/L Lactate Dehydrogenase (81-234) U/L Creatine Kinase (16-191) U/L Troponin I < 0.017 (0.000-0.056) ng/mL C-Reactive Protein 1.0 H (0.0-0.9) mg/dL B-Natriuretic Peptide 189 H (0-100) pg/ml Total Protein 6.6 (6.4-8.2) g/dL Albumin 2.9 L (3.4-5.0) g/dL Globulin 3.7 Albumin/Globulin Ratio 0.78 Ethyl Alcohol < 3 (0) mg/dL SARS-CoV-2 RNA (JEAN MARIE) (NEGATIVE) 09/08/20 09/08/20 09/08/20 Range/Units 16:27 16:27 17:22 WBC (5.0-10.0) 10^3/uL RBC (4.2-5.4) 10^6/uL Hgb (12.0-16.0) g/dL Hct (37.0-47.0) % MCV (80-100) fL MCH (27.0-34.0) pg MCHC (33.0-35.0) g/dL Plt Count (150-450) 10^3/uL Neut % (Auto) (42.2-75.2) % Lymph % (Auto) (20.5-50.1) % [place] % (Auto) (2-8) % Eos % (Auto) (1.0-3.0) % Baso % (Auto) (0.0-1.0) % PT (9.0-12.0) SEC INR (0.9-1.2) APTT (22.0-34.0) SEC Sodium (136-145) mmol/L Potassium (3.5-5.1) mmol/L Chloride (98-107) mmol/L Carbon Dioxide (21-32) mmol/L Anion Gap (7-13) mEq/L BUN (7-18) mg/dL Creatinine (0.55-1.02) mg/dL Est Cr Clr Drug Dosing mL/min Estimated GFR (MDRD) BUN/Creatinine Ratio (No establ ref range) Glucose (70-99) mg/dL Lactic Acid 1.0 (0.4-2.0) mmol/L Calcium (8.5-10.1) mg/dL Magnesium (1.8-2.4) mg/dL Total Bilirubin (0.2-1.0) mg/dL AST (15-37) U/L ALT (14-59) U/L Alkaline Phosphatase (46-116) U/L Lactate Dehydrogenase 159 (81-234) U/L Creatine Kinase 43 (16-191) U/L Troponin I (0.000-0.056) ng/mL C-Reactive Protein (0.0-0.9) mg/dL B-Natriuretic Peptide (0-100) pg/ml Total Protein (6.4-8.2) g/dL Albumin (3.4-5.0) g/dL Globulin Albumin/Globulin Ratio Ethyl Alcohol (0) mg/dL SARS-CoV-2 RNA (JEAN MARIE) Negative (NEGATIVE) Med Orders - Current: Current Medications Acetaminophen (Acetaminophen 650 Mg Supp) 650 mg RECTAL Q4H PRN PRN Reason: Pain (mild 1-3) Acetaminophen (Acetaminophen 325 Mg Tab) 650 mg PO Q4H PRN PRN Reason: Pain (Mild 1-3)/fever Dextrose/Sodium Chloride (Dextrose 5%-1/2 Ns) 1,000 mls @ 60 mls/hr IV ASDIRECTED [facility] Last Admin: 09/08/20 19:32 Dose: 60 mls/hr Documented by: Levetiracetam 1,000 mg/ Premix 200 mls @ 800 mls/hr IV Q12HR [facility] Last Infusion: 09/08/20 22:29 Dose: Infused Documented by: Ondansetron HCl (Ondansetron 4 Mg/2 Ml Sdv) 4 mg IVPUSH Q4H PRN PRN Reason: Nausea/Vomiting Sodium Chloride (Sodium Chloride 0.9% 10 Ml Syringe) 10 ml FLUSH ASDIRECTED PRN PRN Reason: Keep Vein Open Discontinued Medications Levetiracetam 1,500 mg/ Premix 300 mls @ 1,200 mls/hr IV ONETIME ONE Stop: 09/08/20 17:04 Last Admin: 09/08/20 17:28 Dose: 1,200 mls/hr Documented by: Magnesium Sulfate (Magnesium Sulfate In Water 2 Gm/50 Ml) 2 gm in 50 mls @ 25 mls/hr IV ONETIME ONE Stop: 09/08/20 19:29 Last Admin: 09/08/20 19:32 Dose: 25 mls/hr Documented by: - Exam General: Alert HEENT: Pupils Equal Lungs: Clear to Auscultation, Normal Respiratory Effort Cardiovascular: Regular Rate, Regular Rhythm GI/Abdominal Exam: Normal Bowel Sounds, Soft, Non-Tender, No Distention Extremities: Normal Inspection, No Pedal Edema Neurological: No New Focal Deficit, Other (Right-sided facial droop. Tongue deviates to the left. 4 out of 5 weakness on the right in comparison to the left. No change in comparison to admission exam) - Patient Data Lab Results Last 24 hrs: Laboratory Results - last 24 hr 09/08/20 09/08/20 09/08/20 Range/Units 16:27 16:27 16:27 WBC 9.3 (5.0-10.0) 10^3/uL RBC 4.40 (4.2-5.4) 10^6/uL Hgb 12.1 (12.0-16.0) g/dL Hct 38.8 (37.0-47.0) % MCV 88.2 D (80-100) fL MCH 27.5 (27.0-34.0) pg MCHC 31.2 L (33.0-35.0) g/dL Plt Count 277 D (150-450) 10^3/uL Neut % (Auto) 82.1 H (42.2-75.2) % Lymph % (Auto) 9.0 L (20.5-50.1) % [place] % (Auto) 7.1 (2-8) % Eos % (Auto) 1.4 (1.0-3.0) % Baso % (Auto) 0.4 (0.0-1.0) % PT 12.3 H (9.0-12.0) SEC INR 1.2 (0.9-1.2) APTT 26.5 (22.0-34.0) SEC Sodium 143 (136-145) mmol/L Potassium 3.7 (3.5-5.1) mmol/L Chloride 104 (98-107) mmol/L Carbon Dioxide 30 (21-32) mmol/L Anion Gap 12.7 (7-13) mEq/L BUN 17 (7-18) mg/dL Creatinine 0.79 (0.55-1.02) mg/dL Est Cr Clr Drug Dosing 41.69 mL/min Estimated GFR (MDRD) > 60 BUN/Creatinine Ratio 21.5 (No establ ref range) Glucose 101 H (70-99) mg/dL Lactic Acid (0.4-2.0) mmol/L Calcium 8.9 (8.5-10.1) mg/dL Magnesium 1.7 L (1.8-2.4) mg/dL Total Bilirubin 0.4 (0.2-1.0) mg/dL AST 15 (15-37) U/L ALT 29 (14-59) U/L Alkaline Phosphatase 59 (46-116) U/L Lactate Dehydrogenase (81-234) U/L Creatine Kinase (16-191) U/L Troponin I < 0.017 (0.000-0.056) ng/mL C-Reactive Protein 1.0 H (0.0-0.9) mg/dL B-Natriuretic Peptide 189 H (0-100) pg/ml Total Protein 6.6 (6.4-8.2) g/dL Albumin 2.9 L (3.4-5.0) g/dL Globulin 3.7 Albumin/Globulin Ratio 0.78 Ethyl Alcohol < 3 (0) mg/dL SARS-CoV-2 RNA (JEAN MARIE) (NEGATIVE) 09/08/20 09/08/20 09/08/20 Range/Units 16:27 16:27 17:22 WBC (5.0-10.0) 10^3/uL RBC (4.2-5.4) 10^6/uL Hgb (12.0-16.0) g/dL Hct (37.0-47.0) % MCV (80-100) fL MCH (27.0-34.0) pg MCHC (33.0-35.0) g/dL Plt Count (150-450) 10^3/uL Neut % (Auto) (42.2-75.2) % Lymph % (Auto) (20.5-50.1) % [place] % (Auto) (2-8) % Eos % (Auto) (1.0-3.0) % Baso % (Auto) (0.0-1.0) % PT (9.0-12.0) SEC INR (0.9-1.2) APTT (22.0-34.0) SEC Sodium (136-145) mmol/L Potassium (3.5-5.1) mmol/L Chloride (98-107) mmol/L Carbon Dioxide (21-32) mmol/L Anion Gap (7-13) mEq/L BUN (7-18) mg/dL Creatinine (0.55-1.02) mg/dL Est Cr Clr Drug Dosing mL/min Estimated GFR (MDRD) BUN/Creatinine Ratio (No establ ref range) Glucose (70-99) mg/dL Lactic Acid 1.0 (0.4-2.0) mmol/L Calcium (8.5-10.1) mg/dL Magnesium (1.8-2.4) mg/dL Total Bilirubin (0.2-1.0) mg/dL AST (15-37) U/L ALT (14-59) U/L Alkaline Phosphatase (46-116) U/L Lactate Dehydrogenase 159 (81-234) U/L Creatine Kinase 43 (16-191) U/L Troponin I (0.000-0.056) ng/mL C-Reactive Protein (0.0-0.9) mg/dL B-Natriuretic Peptide (0-100) pg/ml Total Protein (6.4-8.2) g/dL Albumin (3.4-5.0) g/dL Globulin Albumin/Globulin Ratio Ethyl Alcohol (0) mg/dL SARS-CoV-2 RNA (JEAN MARIE) Negative (NEGATIVE) Result Diagrams: 09/08/20 16:27 09/08/20 16:27 Sepsis Event Note - Evaluation Sepsis Screening Result: No Definite Risk - Focused Exam Vital Signs: Vital Signs Temp Pulse Resp BP BP Pulse Ox 09/09/20 04:00 97.5 F 72 20 113/65 97 09/09/20 00:00 97.1 F 74 20 106/71 95 09/08/20 20:00 98.0 F 87 20 118/72 97 - Problem List Review Problem List Initiated/Reviewed/Updated: Yes - My Orders Last 24 Hours: My Active Orders 09/08/20 17:15 Admission Diagnosis [ADT] Routine Admission Status [Patient Status] [ADT] Routine Nothing per Oral Now Diet [DIET] 09/08/20 17:24 Oxygen Therapy [RC] .PRN Up With Assistance [RC] ASDIRECTED VTE/DVT Education [RC] 08,20 Vital Signs [RC] 00,04,08,12,16,20 OT Evaluation and Treatment [CONS] Routine PT Evaluation and Treatment [CONS] Routine Acetaminophen [TylenoL] 650 mg PO Q4H PRN Acetaminophen [Tylenol] 650 mg RECTAL Q4H PRN Ondansetron [Zofran] 4 mg IVPUSH Q4H PRN Sodium Chloride 0.9% [Saline Flush] 10 ml FLUSH ASDIRECTED PRN Saline Lock Insert [OM.PC] Routine Resuscitation Status Routine 09/08/20 17:25 Cardiac Monitoring [RC] 08,20 Sequential Compression Device [OM.PC] Per Unit Routine 09/08/20 17:27 Antiembolic Devices [RC] 08,20 09/08/20 17:30 Dextrose 5%-0.45% NaCl [Dextrose 5%-1/2 NS] 1,000 ml IV ASDIRECTED 09/08/20 21:00 levETIRAcetam in NaCl (iso-os) [Levetiracetam in NaCl (Iso-Os)] 1,000 mg Premix Bag 1 bag IV Q12HR 09/08/20 21:17 Seizure Precautions [OM.PC] Routine 09/09/20 08:00 Brain wo Cont [MR] Routine - Plan Plan:: 89-year-old female with known history of prior stroke, presumed atrial fibrillation that is paroxysmal, and hypertension presents to the [facility] emergency department with seizure-like activity and new neurologic deficits. 1. Acute cerebrovascular accident. Suspected new ischemic event. Swallow evaluation in the morning. If she passes will resume oral medications including statin. MRI without contrast of brain according to stroke protocol pending. PT and OT assessment. Case management and social work consult. In the event the patient has a decline in status or intracranial pathology worsens, the patient is a DNR/DNI and according to family we will pursue more of a palliative approach rather than neurologic and/or neurosurgical consultation, transfer, aggressive measures. Family is also aware that factor X inhibitor reversal agents are not available at our facility in the event that she has a hemorrhagic conversion. Blood pressures controlled. 2. New onset seizure. Secondary to #1 and due to the severity of her previous insult. Patient has been loaded with Keppra 1500 mg by the emergency department. Also status post Ativan. Continue with Keppra IV 1000 g twice daily which will be converted to oral therapy at the time of discharge. Seizure precautions. Further plans as noted above. 3. History of hypertension. Home medications on hold. Will allow for permissive hypertension. 4. History hyperlipidemia. Hold statin therapy until the patient passes swallow evaluation. CODE STATUS: DNR/DNI. DVT prophylaxis mechanically as Eliquis is on hold.
[2020-09-09] MEDS: levETIRAcetam in NaCl (iso-os) 1,000 MG in Premix Bag 1 BAG IV SCH ×2 (10:19)
--- NOTE | 2020-09-09 10:32 | MR ---
PROCEDURE INFORMATION: Exam: MR Head Without Contrast Exam date and time: 09/09/2020 7:55 AM Age: 89 years old Clinical indication: Other: Stroke symptoms; Additional info: Stroke protocol TECHNIQUE: Imaging protocol: MR of the head without contrast. COMPARISON: CT Head wo Cont 09/08/2020 4:11 PM FINDINGS: Brain: No acute infarct identified on the diffusion-weighted imaging. 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 Chronic medial left occipital infarct in the right [employer] territory. The brain demonstrates generalized volume loss. Patchy increased signal intensity in the deep white and subcortical white matter on the T2 weighted images most likely represents chronic small vessel ischemic change. Cerebral ventricles: The ventricles are mildly enlarged in keeping with volume loss. Bones/joints: Unremarkable. Paranasal sinuses: Mild ethmoid mucosal thickening. Mastoid air cells: Normal as visualized. No mastoid effusion. Orbital cavity: Thinning of the lenses of the globes consistent with prior lens surgery. Soft tissues: Unremarkable. Middle cerebral arteries: Relative absence of flow void for the left MCA distal M1 segment suggesting chronic stenosis or occlusion. Flow voids are seen for left MCA M2 branches in keeping with flow reconstitution. IMPRESSION: No evidence of acute infarct.
[2020-09-09] MEDS: Ciprofloxacin 500 MG Tab PO SCH ×2 (13:59→20:32)
[2020-09-09] MEDS: Apixaban 5 MG Tab PO SCH (20:31)
[2020-09-09] MEDS: levETIRAcetam 500 MG Tab PO SCH (20:32)
[2020-09-10] MEDS: Dextrose 5%-0.45% NaCl 1,000 ML IV SCH (08:32)
[2020-09-10] MEDS: Ciprofloxacin 500 MG Tab PO SCH ×2 (08:59→21:29)
[2020-09-10] MEDS: Apixaban 5 MG Tab PO SCH ×2 (08:59→21:30)
[2020-09-10] MEDS: levETIRAcetam 500 MG Tab PO SCH ×2 (08:59→21:28)
--- NOTE | 2020-09-10 15:26 | PCM.SN.2 ---
- Free Text/Narrative Note: START OF DOCTOR KATERIN PROGRESS NOTE Subjective: The patient endorses no complaints at this time. She denies diplopia, blurry vision, dysphagia, dysphagia, paresthesia/anesthesia/SANTOSH of any part of her body. She denies fever, rigors, nausea, vomiting, cough, wheeze, abdominal pain, dyspnea, or any other constitutional complaints. I explained to the patient her current medical condition and plan of care and have answered all of her questions. Nursing staff has informed that no seizure activity has been do cumented during her hospitalization Objective: General: -Alert -No acute distress -No dyspnea -No tachypnea Heart: -Regular rate -Regular rhythm -No murmurs -No gallops -No rubs Lungs: -No wheeze -No rhonchi -No rales Abdomen: -Normal bowel sounds in all four quadrants -No rebound -No guarding -No tenderness Extremities: -2/4 pulse in all four extremities -No clubbing -No cyanosis -No edema Additional Details / Additional Findings / Exceptions / Miscellaneous: Cranial 2 through 12 are intact. Eyes: Pupils equally round and reactive to light accommodation, extraocular muscle intact. The patient is 5 out of 5 bilateral upper and lower extreme strength. Sensorium bilateral upper and lower extremities are equal and intact Pertinent Laboratory Results / Pertinent Radiology Results / Pertinent Diagnostic Results / Pertinent Vital Signs: Vital signs stable Assessment / Plan: Seizure, new onset. Seizure precautions. Keppra 1000 g p.o. twice daily. It is possible, although less likely that patient seizure may have been precipitated by her urinary tract infection given her history of prior CVA Urinary tract infection. Ciprofloxacin 500 mg p.o. twice daily Hypertension. Hydrochlorothiazide 12.5 mg p.o. daily plus K-Dur 20 EQ p.o. daily plus metoprolol 50 mg p.o. twice daily History of CVA. Lipitor 10 mg p.o. nightly Atrial fibrillation. Metoprolol 50 mg p.o. twice daily plus Eliquis 5 mg p.o. twice daily Hypomagnesemia. Will monitor magnesium levels intermittently and supplement as necessary Hyperlipidemia. Lipitor 10 mg p.o. nightly DVT prophylaxis. Eliquis 5 mg p.o. twice daily Disposition: I have been notified by the nursing staff that the patient is scheduled for reassessment by physical therapy and Occupational Therapy on September 12, 2020. At that point time will determine discharge planning for the patient as, currently, the patient is medically stable for discharge END OF DOCTOR EMAMIS PROGRESS NOTE
[2020-09-10] MEDS: atorvaSTATin 10 MG Tab PO SCH (21:28)
[2020-09-10] MEDS: Metoprolol Tartrate 50 MG Tab PO SCH (21:29)
[2020-09-11] MEDS: Dextrose 5%-0.45% NaCl 1,000 ML IV SCH ×2 (00:38→17:13)
--- NOTE | 2020-09-11 07:39 | PCM.SN.2 ---
- Free Text/Narrative Note: START OF DOCTOR EMAMIS PROGRESS NOTE Subjective: The patient endorses no complaints at this time. Overnight she denies fever, rigors, nausea, vomiting, cough, wheeze, abdominal pain, chest pain, dyspnea. She denies experiencing seizure activity overnight I see no direct nursing documentation of seizure activity overnight as well. I explained to the patient her current medical condition and plan of care and I have answered all of her questions Objective: General: -Alert -No acute distress -No dyspnea -No tachypnea Heart: -Regular rate -Regular rhythm -No murmurs -No gallops -No rubs Lungs: -No wheeze -No rhonchi -No rales Abdomen: -Normal bowel sounds in all four quadrants -No rebound -No guarding -No tenderness Extremities: -2/4 pulse in all four extremities -No clubbing -No cyanosis -No edema Additional Details / Additional Findings / Exceptions / Miscellaneous: Pertinent Laboratory Results / Pertinent Radiology Results / Pertinent Diagnostic Results / Pertinent Vital Signs: Vital signs stable Assessment / Plan: Seizure, new onset. Seizure precautions. Keppra 1000 g p.o. twice daily. It is possible, although less likely that patient seizure may have been precipitated by her urinary tract infection given her history of prior CVA Urinary tract infection. Ciprofloxacin 500 mg p.o. twice daily Hypertension. Hydrochlorothiazide 12.5 mg p.o. daily plus K-Dur 20 EQ p.o. daily plus metoprolol 50 mg p.o. twice daily History of CVA. Lipitor 10 mg p.o. nightly Atrial fibrillation. Metoprolol 50 mg p.o. twice daily plus Eliquis 5 mg p.o. twice daily Hypomagnesemia. Will monitor magnesium levels intermittently and supplement as necessary Hyperlipidemia. Lipitor 10 mg p.o. nightly DVT prophylaxis. Eliquis 5 mg p.o. twice daily Disposition: I have been notified by the nursing staff that the patient is scheduled for reassessment by physical therapy and Occupational Therapy on September 12, 2020. At that point time will determine discharge planning for the patient as, currently, the patient is medically stable for discharge END OF DOCTOR EMAMIS PROGRESS NOTE
[2020-09-11] MEDS: levETIRAcetam 500 MG Tab PO SCH ×2 (08:41→22:14)
[2020-09-11] MEDS: Apixaban 5 MG Tab PO SCH ×2 (08:41→22:14)
[2020-09-11] MEDS: Ciprofloxacin 500 MG Tab PO SCH ×2 (08:41→22:13)
[2020-09-11] MEDS: Metoprolol Tartrate 50 MG Tab PO SCH ×2 (08:42→22:14)
[2020-09-11] MEDS: Potassium Chloride 10 MEQ Tab.ER PO SCH (08:43)
[2020-09-11] MEDS: Hydrochlorothiazide 25 MG Tab PO SCH (08:43)
[2020-09-11] MEDS: atorvaSTATin 10 MG Tab PO SCH (22:14)
--- NOTE | 2020-09-12 07:08 | PCM.SN.2 ---
- Free Text/Narrative Note: START OF DOCTOR EMAMIS PROGRESS NOTE Subjective: The patient endorses no complaints at this time. Overnight she denies fever, rigors, nausea, vomiting, cough, wheeze, abdominal pain, chest pain, dyspnea, or any other constitutional complaints. The patient denies any seizure activity overnight. I explained to the patient her current medical condition and plan of care and I have answered all of her questions Objective: General: -Alert -No acute distress -No dyspnea -No tachypnea Heart: -iRegular rate -Regular rhythm -No murmurs -No gallops -No rubs Lungs: -No wheeze -No rhonchi -No rales Abdomen: -Normal bowel sounds in all four quadrants -No rebound -No guarding -No tenderness Extremities: -2/4 pulse in all four extremities -No clubbing -No cyanosis -No edema Additional Details / Additional Findings / Exceptions / Miscellaneous: Pertinent Laboratory Results / Pertinent Radiology Results / Pertinent Diagnostic Results / Pertinent Vital Signs: Heart rate 104 bpm Assessment / Plan: Seizure, new onset. Seizure precautions. Keppra 1000 g p.o. twice daily. It is possible, although less likely that patient seizure may have been precipitated by her urinary tract infection given her history of prior CVA Urinary tract infection. Ciprofloxacin 500 mg p.o. twice daily Hypertension. Hydrochlorothiazide 12.5 mg p.o. daily plus K-Dur 20 EQ p.o. daily plus metoprolol 50 mg p.o. twice daily History of CVA. Lipitor 10 mg p.o. nightly Atrial fibrillation. Metoprolol 50 mg p.o. twice daily plus Eliquis 5 mg p.o. twice daily Hypomagnesemia. Will monitor magnesium levels intermittently and supplement as necessary Hyperlipidemia. Lipitor 10 mg p.o. nightly DVT prophylaxis. Eliquis 5 mg p.o. twice daily Disposition: I have been notified by the nursing staff that the patient is scheduled for reassessment by physical therapy and Occupational Therapy on September 12, 2020. At that point time will determine discharge planning for the patient as, currently, the patient is medically stable for discharge END OF DOCTOR EMAMIS PROGRESS NOTE
[2020-09-12] MEDS: levETIRAcetam 500 MG Tab PO SCH (09:22)
[2020-09-12] MEDS: Apixaban 5 MG Tab PO SCH (09:22)
[2020-09-12] MEDS: Potassium Chloride 10 MEQ Tab.ER PO SCH (09:22)
[2020-09-12] MEDS: Metoprolol Tartrate 50 MG Tab PO SCH (09:22)
[2020-09-12] MEDS: Hydrochlorothiazide 25 MG Tab PO SCH (09:22)
--- NOTE | 2020-09-12 09:43 | PCM.SN.2 ---
- Free Text/Narrative Note: START OF DOCTOR EMAMIS DISCHARGE SUMMARY Date of Admission: September 08, 2020 Date of Discharge: 9:41 AM on September 12, 2020 Primary Diagnosis: Seizure, new onset Secondary Diagnosis: Urinary tract infection Hypertension History of CVA Atrial fibrillation Hypomagnesemia, status post treatment Hyperlipidemia Consultations: None Condition on Discharge: Stable Disposition: The patient be advised follow-up with neurology 2 to 4 weeks post discharge for evaluation for her new onset of seizure which was the reason for hospitalization Discharge Medications: Bactrim 400/80 m tab p.o. twice daily. Quantity 4. 0 refills Eliquis 5 mg p.o. twice daily Metoprolol 50 mg p.o. twice daily Keppra 1000 mg p.o. twice daily Hydrochlorothiazide 12.5 mg p.o. daily K-Dur 20 M EQ p.o. daily Lipitor 10 mg p.o. nightly The patient will receive an order for 4 wheeled walker with bench to be used at homelifetime use for diagnosis of gait instability END OF DOCTOR EMAMIS DISCHARGE SUMMARY
== END 2020-09-12 17:20 | disposition home or self-care (01) | DRG 101 ==
LOC: DL.ED 16:03 → DL.MS 17:15
PROVIDERS: ADMIT Hospitalist; ATTEND Internal Medicine
DX: I63.89 Other cerebral infarction (principal); R56.9 Unspecified convulsions; N39.0 Urinary tract infection, site not specified; Z66 Do not resuscitate; I69.320 Aphasia following cerebral infarction; I10 Essential (primary) hypertension; E78.00 Pure hypercholesterolemia, unspecified; I48.91 Unspecified atrial fibrillation; E83.42 Hypomagnesemia; E78.5 Hyperlipidemia, unspecified; Z79.01 Long term (current) use of anticoagulants; Z79.899 Other long term (current) drug therapy; Z86.73 Personal history of transient ischemic attack (TIA), and cerebral infarction without residual deficits; Z20.822 Contact with and (suspected) exposure to COVID-19
CPT/HCPCS: 36415; 70450; 70551; 80053; 80307; 81001; 82550; 83605; 83615; 83735; 83880; 84484; 85025; 85610; 85730; 86140; 92610-GN; 93005; 93010; 97110-GP; 97161-GP; 97165-GO; 97530-GO; 97535-GO; 99284; 99285-25; A9270-GY; J1953; J3475; J7042; U0002

== ENCOUNTER 2021-05-17 14:28 | Emergency (ER) | payer MEDICARE, BC ==
[2021-05-17] MEDS ORDERED: Lidocaine 1% with EPINEPHrine 1:100,000 20 ML MDV INJECT ONE (16:08)
== END 2021-05-17 16:40 | disposition home or self-care (01) ==
LOC: DL.ED 14:28
DX: I83.891 Varicose veins of right lower extremity with other complications (principal); I48.91 Unspecified atrial fibrillation; E78.00 Pure hypercholesterolemia, unspecified; I10 Essential (primary) hypertension; Z86.73 Personal history of transient ischemic attack (TIA), and cerebral infarction without residual deficits; Z79.01 Long term (current) use of anticoagulants; Z79.899 Other long term (current) drug therapy
CPT/HCPCS: 99284